=== PATIENT | female | born 1970 | race Caucasian/White ===

== ENCOUNTER 2018-10-16 06:16 | Day surgery (SDC) | payer OTHER ==
[2018-10-15 10:52] VITALS: BMI 33.1
[2018-10-16] MEDS ORDERED: Lactated Ringer's 500 ML IV ONE (08:58)
[2018-10-16] MEDS ORDERED: Propofol 10 mg/ml Inj (20 ML) ONE (09:08)
[2018-10-16 09:12] VITALS: O2SAT 100
[2018-10-16] MEDS ORDERED: Lidocaine Hydrochloride 5 ML INJ ONE (09:16)
[2018-10-16 10:52] VITALS: BP 121/63; PULSE 64; RESP 18
[2018-10-16 11:40] VITALS: TEMP 98.2
== END 2018-10-16 10:40 | disposition home or self-care (01) ==
LOC: C.ENDO 06:16
PROVIDERS: ATTEND Internal Medicine Gastroenterology
DX: K29.70 Gastritis, unspecified, without bleeding (principal); K44.9 Diaphragmatic hernia without obstruction or gangrene; K31.9 Disease of stomach and duodenum, unspecified
CPT/HCPCS: 43239; 84703; 88305; 88313; 88342; J2001; J2704; J7120